=== PATIENT | male | born 1990 | race Caucasian/White ===

== ENCOUNTER 2019-06-18 11:06 | Emergency (ER) | payer SELFPAY, OTHER ==
[2019-06-18] MEDS: HYDROCODONE/APAP (5/325) TAB PO (13:04)
[2019-06-18] MEDS: ONDANSETRON (ODT) 4 MG TAB ODT (13:04)
== END 2019-06-18 13:10 | disposition home or self-care (01) ==
LOC: FTE 11:06
DX: S60.552A Superficial foreign body of left hand, initial encounter (principal); X58.XXXA Exposure to other specified factors, initial encounter; Y92.9 Unspecified place or not applicable
CPT/HCPCS: 10120; 73130-LT; 99283-25